=== PATIENT | male | born 1955 | race African-American/Black ===

== ENCOUNTER → 2021-02-22 | Outpatient (CLI) | payer MEDICARE, OTHER ==
--- NOTE | 2021-02-22 15:25 | KCIC ---
STUDY: MRI of the right shoulder without contrast INDICATION: Right shoulder pain and limited range of motion. COMPARISON: Right shoulder radiographs 01/11/2021 TECHNIQUE: Multiplanar MR imaging of the right shoulder performed without the use of intravenous or i ntra-articular contrast. FINDINGS: AC joint: Mild AC joint arthrosis. Degenerative cystic change approaching the acromial articular surf brett. Subacromial subdeltoid bursitis with a 6 mm loose body beneath the acromion. Rotator cuff: Hypertrophic supraspinatus tendinosis with a superimposed thin and irregularly marginat ed, high-grade bursal sided tear at the anterior aspect at the footprint as seen on images 9 and 10 s eries 6 and image 21 series 5. The tear is estimated to involve at least 75 percent cross-sectional t endon thickness. There is also low to intermediate grade grade articular sided fraying/tearing of the supraspinatus at the critical zone from mid to posterior as seen on image 18 series 5. Estimated 30- 40 percent cross-sectional involvement. Infraspinatus tendinosis without a high-grade or full-thickne ss tear. The teres minor is intact as is the subscapularis. Rotator cuff muscular bulk is maintained. Labrum: Degenerative labral signal and morphology best seen posteriorly. Long head biceps tendon: Intra-articular tendinosis. The tendon remains intact and normally located. Cartilage: High-grade chondrosis likely with a delaminating component at the anterior/inferior quadra nt. Humeral head chondral thinning best seen superomedial. Bones: Degenerative subchondral edema of the glenoid anterior/inferior. Medial humeral head osteophyt e formation. Degenerative remodeling of the greater tuberosity most notably at the supraspinatus inse rtion. Miscellaneous: Small amount of shoulder joint fluid. The inferior glenohumeral ligament complex is in tact. No axillary adenopathy. Impression: 1. As detailed in the body the report, high-grade bursal sided perforating tear of the insertional s upraspinatus anteriorly in addition to low to intermediate grade articular sided tearing/fraying of t he mid to posterior supraspinatus along the critical zone. Background hypertrophic tendinosis. There is also tendinosis of the infraspinatus without a superimposed high-grade or full-thickness tear. 2. Degenerative labral signal and morphology best seen posteriorly. Intra-articular long head biceps tendinosis. 3. 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 4. Subacromial subdeltoid bursitis. Electronically signed by: DUGLAS VALENTINE MD (02/22/2021 3:22 PM) [id number]
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
== END ==
LOC: KCIC MRI 12:37
PROVIDERS: ATTEND Orthopaedic Surgery
DX: M75.101 Unspecified rotator cuff tear or rupture of right shoulder, not specified as traumatic (principal); M19.011 Primary osteoarthritis, right shoulder; M75.51 Bursitis of right shoulder; M24.011 Loose body in right shoulder; M25.711 Osteophyte, right shoulder
CPT/HCPCS: 73221; 73721

== ENCOUNTER → 2021-06-06 | Outpatient (CLI) | payer MEDICARE, OTHER ==
[2021-06-06 13:16] LABS: BASO # 0.1 x10^3/uL (0.0-0.2); BASO % 1 % (0-3); EOS # 0.1 x10^3/uL (0.0-0.7); EOS % 2 % (0-3); HEMATOCRIT 42.6 % (39.0-53.0); HEMOGLOBIN 14.1 g/dL (13.0-17.5); LYMPH # 2.6 x10^3/uL (1.0-4.8); LYMPH % 49 % (24-48); MEAN CORPUSCULAR HEMOGLOBIN 31 pg (25-35); MEAN CORPUSCULAR HGB CONC 33 g/dL (31-37); MEAN CORPUSCULAR VOLUME 94 fL (79-100); MONO # 0.4 x10^3/uL (0.0-1.1); MONO % 8 % (0-9); NEUT # 2.1 x10^3/uL (1.8-7.7); NEUT % 41 % (31-73); PLATELET COUNT 156 x10^3/uL (140-400); RED BLOOD COUNT 4.55 x10^6/uL (4.30-5.70); RED CELL DISTRIBUTION WIDTH 14.3 % (11.5-14.5); WHITE BLOOD COUNT 5.2 x10^3/uL (4.0-11.0)
--- NOTE | 2021-06-06 13:37 | EKG ---
[facility] [address] [place] [id number] Test Date: 2021-06-06 Test Time: 13:38:52 Pat Name: ERICKSON ARAUJO Department: Room: Gender: [employer]st: [place] : 1955 Requested By: ABNER CANCINO Order Number: [id number] Reading MD: Lei Rodriguez Measurements Intervals Kenn[place] Rate: 53 P: 25 [place]: 160 QRS: 17 QRSD: 76 T: -5 QT: 420 QTc: 396 Interpretive Statements SINUS RHYTHM T WAVE INVERSION IN LEADS III AND aVF PAC Electronically Signed On 06-07-2021 15:45:41 CDT by Lei Rodriguez
[2021-06-06 13:38] LABS: ALBUMIN 3.9 g/dL (3.4-5.0); ALBUMIN/GLOBULIN RATIO 1.1 (1.0-1.7); CALCIUM 8.6 mg/dL (8.5-10.1); CREATININE 1.2 mg/dL (0.7-1.3); GFR 73.3; POTASSIUM 4.1 mmol/L (3.5-5.1); TOTAL BILIRUBIN 0.2 mg/dL (0.2-1.0); TOTAL PROTEIN 7.3 g/dL (6.4-8.2)
--- NOTE | 2021-06-06 16:08 | RAD ---
EXAM: CHEST 2 VIEWS. HISTORY: Preoperative risk factors. COMPARISON: None. FINDINGS: Frontal and lateral views of the chest are obtained. There are no confluent infiltrates. There is no pneumothorax or pleural effusion. The heart is not en larged. Cholecystectomy clips are noted. IMPRESSION: 1. No confluent infiltrates. Electronically signed by: Eliezer Marrero MD (06/06/2021 4:05 PM) [id number]
== END ==
LOC: LAB 12:51
PROVIDERS: ATTEND Orthopaedic Surgery
DX: Z01.818 Encounter for other preprocedural examination (principal); M75.121 Complete rotator cuff tear or rupture of right shoulder, not specified as traumatic; R53.1 Weakness; Z90.49 Acquired absence of other specified parts of digestive tract
CPT/HCPCS: 36415; 71046; 80053; 85025; 93005